=== PATIENT | male | born 1945 | race Caucasian/White ===

== ENCOUNTER 2018-08-03 13:05 | Emergency (ER) | payer MEDICARE ==
[~2018-08-03] VITALS: Ht 190.5 cm; Wt 142.9 kg
--- OUTSIDE RECORDS SUMMARY | ~2018-08-03 | XMS | Clinical Summary ---
Demographics + + + | Address | [address] | | | [place] [address] | + + + | Home Phone | | + + + | Preferred Language | Unknown | + + + | Marital Status | | + + + | Mosque Affiliation | Unknown | + + + | Race | Unknown | + + + | Ethnic Group | Unknown | + + + Author + + + | Author | [facility] [employer] | + + + | Organization | [facility] | + + + | Address | Unknown | + + + | Phone | Unavailable | + + + Support + + + + + | Name | Relationship | Address | Phone | + + + + + | Naomi Burrell | ECON | [address] | | | | | [place] | | | | | [address] | | + + + + + Care Team Providers + +------+ + | Care Commercial Decorator Name | Role | Phone | + +------+ + | Abram Rodriguez MD | PP | | + +------+ + Allergies No Known Allergies Current Medications + + +---------+---------+------+------+-------+ | Prescription | Sig. | Disp. | Refills | Star | End | Statu | | | | | | t | Date | s | | | | | | Date | | | + + +---------+---------+------+------+-------+ | acetaminophen | Take 1,000 mg by | | | | | Activ | | (TYLENOL) 500 MG | mouth. | | | | | e | | tablet | | | | | | | + + +---------+---------+------+------+-------+ | amLODIPine | | | | 10/2 | | Activ | | (NORVASC) 5 MG | | | | 0/20 | | e | | tablet | | | | 18 | | | + + +---------+---------+------+------+-------+ | aspirin 81 MG | Take 81 mg by mouth. | | | | | Activ | | chewable tablet | | | | | | e | + + +---------+---------+------+------+-------+ | carvedilol (COREG) | | | 0 | 09/1 | | Activ | | 25 MG tablet | | | | 0/20 | | e | | | | | | 18 | | | + + +---------+---------+------+------+-------+ | cloNIDine | Take 0.1 mg by mouth | | 1 | 10/2 | | Activ | | (CATAPRES) 0.1 MG | 2 (two) times | | | 3/20 | | e | | tablet | daily. | | | 18 | | | + + +---------+---------+------+------+-------+ | vitamin D2, | Take 50,000 Units by | | | | | Activ | | ergocalciferol, | mouth. | | | | | e | | [address]97 units capsule | | | | | | | + + +---------+---------+------+------+-------+ | furosemide (LASIX) | Take 40 mg by mouth | | 0 | 10/0 | | Activ | | 40 MG tablet | daily. | | | 4/20 | | e | | | | | | 18 | | | + + +---------+---------+------+------+-------+ | gemfibrozil | | | 0 | 08/1 | | Activ | | (LOPID) 600 MG | | | | 9/20 | | e | | tablet | | | | 18 | | | + + +---------+---------+------+------+-------+ | insulin lispro, | Inject 18-20 Units | | | 10/0 | | Activ | | human, (HUMALOG | into the skin. | | | 2/20 | | e | | KWIKPEN) 100 UNIT/ML | | | | 17 | | | | injection | | | | | | | + + +---------+---------+------+------+-------+ | | Take 1 tablet by | | 0 | 10/0 | | Activ | | HYDROcodone-acetamin | mouth every 4 (four) | | | 8/20 | | e | | ophen (NORCO) | hours as needed. | | | 18 | | | | 7.5-325 MG per | for pain | | | | | | | tablet | | | | | | | + + +---------+---------+------+------+-------+ | loratadine | 20 mg. | | | | | Activ | | (CLARITIN) 10 MG | | | | | | e | | tablet | | | | | | | + + +---------+---------+------+------+-------+ | losartan (COZAAR) | Take 50 mg by mouth. | | | | | Activ | | 50 MG tablet | | | | | | e | + + +---------+---------+------+------+-------+ | lovastatin | | | 0 | 10/1 | | Activ | | (MEVACOR) 40 MG | | | | 9/20 | | e | | tablet | | | | 18 | | | + + +---------+---------+------+------+-------+ | omeprazole | Take 20 mg by mouth. | | | | | Activ | | (PRILOSEC) 20 MG | | | | | | e | | capsule | | | | | | | + + +---------+---------+------+------+-------+ | POTASSIUM ACETATE | Take by mouth. | | | | | Activ | | IV | | | | | | e | + + +---------+---------+------+------+-------+ | potassium chloride | Take 10 mEq by mouth | | 0 | 10/0 | | Activ | | (K-TAB) 10 MEQ CR | 2 (two) times | | | 4/20 | | e | | tablet | daily. | | | 18 | | | + + +---------+---------+------+------+-------+ | tamsulosin | take 1 capsule by | | | 08/1 | | Activ | | (FLOMAX) 0.4 MG | mouth once daily | | | 3/20 | | e | | capsule | | | | 18 | | | + + +---------+---------+------+------+-------+ | venlafaxine | 75 mg. | | | 09/0 | | Activ | | (EFFEXOR-XR) 75 MG | | | | 6/20 | | e | | 24 hr capsule | | | | 17 | | | + + +---------+---------+------+------+-------+ | LANTUS 100 UNIT/ML | Inject 40 Units into | 10 mL | 0 | 11/2 | | Activ | | injection | the skin nightly. | | | 8/20 | | e | | | | | | 18 | | | + + +---------+---------+------+------+-------+ | apixaban (ELIQUIS) | Take 1 tablet by | 60 | 2 | 12/0 | | Activ | | 5 MG tablet | mouth 2 (two) times | tablet | | 3/20 | | e | | | daily. | | | 18 | | | + + +---------+---------+------+------+-------+ Active Problems + + + | Problem | Noted Date | + + + | Other acute pulmonary embolism without acute cor pulmonale (HCC) | 03/27/2018 | + + + | Acute pulmonary embolism (HCC) | 03/24/2018 | + + + | Essential hypertension | 03/23/2018 | + + + | Diastolic CHF, acute on chronic (HCC) | 03/23/2018 | + + + | MIGUEL on CPAP | 03/23/2018 | + + + | Type 2 diabetes mellitus with circulatory disorder, with | 03/23/2018 | | long-term current use of insulin ([facility]) | | + + + | CAD S/P percutaneous coronary angioplasty | 03/23/2018 | + + + Resolved Problems + + + + | Problem | Noted | Resolved | | | Date | Date | + + + + | Acute hypoxemic respiratory failure (HCC) | 03/24/20 | | | | 18 | 8 | + + + + | Hypoxia | 03/23/20 | | | | 18 | 8 | + + + + | GISELA (acute kidney injury) (HCC) | 03/23/20 | | | | 18 | 8 | + + + + Social History + +-------+ +--------+------+ | Tobacco Use | Types | Packs/Day | Years | Date | | | | | Used | | + +-------+ +--------+------+ | Never Smoker | | | | | + +-------+ +--------+------+ + +---+---+---+ | Smokeless Tobacco: | | | | | Never Used | | | | + +---+---+---+ + + +---------+ + | Alcohol Use | Drinks/We | oz/Week | Comments | | | ek | | | + + +---------+ + | Yes | 9 | 5.4 | | | | Standard | | | | | drinks or | | | | | | | | | | equivalen | | | | | t | | | + + +---------+ + + + + | Sex Assigned at | Date Recorded | | | | + + + | Not on file | | + + + Last Filed Vital Signs + + + + | Vital Sign | Reading | Time Taken | + + + + | Blood Pressure | 152/73 | 03/27/2018 11:36 AM PST | + + + + | Pulse | 90 | 03/27/2018 11:36 AM PST | + + + + | Temperature | 36.5 C (97.7 F) | 03/27/2018 11:36 AM PST | + + + + | Respiratory Rate | 20 | 03/27/2018 11:36 AM PST | + + + + | Oxygen Saturation | 97% | 03/27/2018 11:36 AM PST | + + + + | Inhaled Oxygen | - | - | | Concentration | | | + + + + | Weight | 136.3 kg (300 lb 7.8 | 03/26/2018 7:40 PM PST | | | oz) | | + + + + | Height | 190.5 cm (6' 3") | 03/23/2018 9:09 PM PST | + + + + | Body Mass Index | 37.56 | 03/26/2018 7:40 PM PST | + + + + Plan of Treatment + + + + + | Health Maintenance | Due Date | Last Done | Comments | + + + + + | Diabetic Eye Exam | | | | | | 4 | | | + + + + + | Diabetic Foot Exam | | | | | | 4 | | | + + + + + | Microalbumin | | | | | Screening | 4 | | | + + + + + | Vaccine: | | | | | Dtap/Tdap/Td (1 - | 3 | | | | Tdap) | | | | + + + + + | Colon Cancer | | | | | Screening | 4 | | | | (Colonoscopy) | | | | + + + + + | Vaccine: Zoster (1 | | | | | of 2) | 4 | | | + + + + + | Statin Therapy | | | | | (optimal intensity) | 8 | | | + + + + + | Hemoglobin A1c | | 03/24/2018 | | | | 9 | | | + + + + + | Vaccine: | Completed | 02/11/2015, 01/27/2010 | | | Pneumococcal 65+ | | | | | Low/Medium Risk | | | | + + + + + | Vaccine: Influenza | Completed | 02/04/2018, 01/16/2017, | | | | | 03/29/2016, Additional history | | | | | exists | | + + + + + Results Not on filefrom Last 3 Months Insurance + +--------+ +------+-------+ + | Payer | Benefi | Subscriber | Type | Phone | Address | | | t Plan | ID | | | | | | / | | | | | | | Group | | | | | + +--------+ +------+-------+ + | [facility] | [employer] | [id number] | | | | | | | | | | | | | HEALTH | | | | | | | CARE - | | | | | | | AARP | | | | | + +--------+ +------+-------+ + | MEDICARE | MEDICA | [id number] | | | [address] | | | RE | | | | [place] [address] | | | IP-OP | | | | | + +--------+ +------+-------+ + + +--------+ +--------+ + + | Guarantor Name | Accoun | Relation to | Date | Phone | Billing Address | | | t Type | Patient | of | | | | | | | | | | + +--------+ +--------+ + + | HENRRY BURRELL | Person | Self [birth year] | Home: | [address] | | | al/Fam | | [phone] | [phone] [place], [place] | | | marci | | | [phone] | [phone] | + +--------+ +--------+ + +
--- OUTSIDE RECORDS SUMMARY | ~2018-08-03 | XMS | Encounter Summary ---
Demographics + + + | Address | [address] | | | [place] [address] | + + + | Home Phone | | + + + | Preferred Language | Unknown | + + + | Marital Status | | + + + | Roman Catholic Affiliation | Unknown | + + + | Race | Unknown | + + + | Ethnic Group | Unknown | + + + Author + + + | Author | [facility] | | | and [place] | + + + | Organization | [facility] | | | and [place] | + + + | Address | Unknown | + + + | Phone | Unavailable | + + + Support + + + + + | Name | Relationship | Address | Phone | + + + + + | Naomi Greenfield | ECON | [address] | | | | | [place], [place] | | | | | [address] | | + + + + + Care Team Providers + +------+ + | Care Animal Care Giver Name | Role | Phone | + +------+ + | Abram Rodriguez MD | PCP | | + +------+ + Reason for Visit + + + | Reason | Comments | + + + | Lab Order | | + + + Encounter Details +--------+ + + + + | Date | Type | Department | Care Team | Description | +--------+ + + + + | 05/22/ | Telephone | [facility] | Carlos Cardoza | Lab Order | | 2018 | | [place] [address] | MD [place] [address] | | | | | [place], | [address] [place] | | | | | [place] [address] | [place] [address] | | | | | [phone] | [phone] | | | | | | | | +--------+ + + + + Social History + + + +--------+ + | Tobacco Use | Types | Packs/Day | Years | Date | | | | | Used | | + + + +--------+ + | Former Smoker | Cigarettes | 1 | 33 | 10/27/1961 - | | | | | | 04/30/1993 | + + + +--------+ + + +------+---+ + | Smokeless Tobacco: | Chew | | Quit: | | Former User | | | 04/30/19 | | | | | 11 | + +------+---+ + + + +---------+ + | Alcohol Use | Drinks/We | oz/Week | Comments | | | ek | | | + + +---------+ + | Yes | 14 | 8.4 | 4 drinks a day | | | Standard | | | | | drinks or | | | | | | | | | | equivalen | | | | | t | | | + + +---------+ + + + + | Sex Assigned at | Date Recorded | | | | + + + | Not on file | | + + + as of this encounter Plan of Treatment +--------+---------+ + + + | Date | Type | Specialty | Care Team | Description | +--------+---------+ + + + | 08/07/ | Office | Pulmonology | Shar Artis, | | | 2018 | Visit | | MD Mg Suarez | | | | | | [address] | | | | | | [place] | | | | | | [id number] | | | | | | | | +--------+---------+ + + + | 11/05/ | Office | Nephrology | Brittany Mederos, | | | 2018 | Visit | | MD Greg Schrader | | | | | | [place] | | | | | | [place] [address] | | | | | | [phone] | | | | | | | | +--------+---------+ + + + as of this encounter Visit Diagnoses Not on filein this encounter"
--- OUTSIDE RECORDS SUMMARY | ~2018-08-03 | XMS | Clinical Summary ---
Demographics + + + | Address | [address] | | | [place] [address] | + + + | Home Phone | | + + + | Preferred Language | Unknown | + + + | Marital Status | | + + + | Religion Affiliation | Unknown | + + + | Race | Unknown | + + + | Ethnic Group | Unknown | + + + Author + + + | Author | [facility] | | | and Javiana | + + + | Organization | [facility] | | | and Javiana | + + + | Address | Unknown | + + + | Phone | Unavailable | + + + Support + + + + + | Name | Relationship | Address | Phone | + + + + + | Naomi Burrell | ECON | [address] | | | | | [place], [place] | | | | | [address] | | + + + + + Care Team Providers + +------+ + | Care Document Review Attorney Name | Role | Phone | + [...] | | + + +---------+---------+------+------+-------+ | insulin glargine | Inject 75 Units | | | | | Activ | | (LANTUS) 100 | under the skin | | | | | e | | units/mL injection | nightly. | | | | | | + + +---------+---------+------+------+-------+ | lovastatin | Take 80 mg by mouth | | | | | Activ | | (MEVACOR) 40 MG | nightly. | | | | | e | | tablet | | | | | | | + + +---------+---------+------+------+-------+ | ergocalciferol | Take 50,000 Units by | | | | | Activ | | (VITAMIN D-2) 50,000 | mouth Once a week. | | | | | e | | units capsule | | | | | | | + + +---------+---------+------+------+-------+ | aspirin 81 mg EC | Take 81 mg by mouth | | | | | Activ | | tablet | Daily. | | | | | e | + + +---------+---------+------+------+-------+ | omeprazole | Take 20 mg by mouth | | | | | Activ | | (PRILOSEC) 20 mg | every morning | | | | | e | | capsule | (before breakfast). | | | | | | + + +---------+---------+------+------+-------+ | losartan (COZAAR) | Take 50 mg by mouth | | | | | Activ | | 50 mg tablet | Daily. | | | | | e | + + +---------+---------+------+------+-------+ | Loratadine 10 MG | Take 10 mg by mouth | | | | | Activ | | CAPS | Daily. | | | | | e | + + +---------+---------+------+------+-------+ | acetaminophen | Take 1,000 mg by | | | | | Activ | | (TYLENOL) 500 mg | mouth 3 times daily. | | | | | e | | tablet | | | | | | | + + +---------+---------+------+------+-------+ | amLODIPine | Take 5 mg by mouth | | | 03/3 | | Activ | | (NORVASC) 5 mg | Daily. | | | 05/19 | | e | | tablet | | | | 17 | | | + + +---------+---------+------+------+-------+ | carvedilol (COREG) | Take 25 mg by mouth | | | / | | Activ | | 25 mg tablet | 2 times daily (with | | | 12/17 | | e | | | breakfast & dinner). | | | 17 | | | + + +---------+---------+------+------+-------+ | venlafaxine | 75 mg Daily. | | | 090 | | Activ | | (EFFEXOR XR) 75 mg | | | | 20 | | e | | 24 hr capsule | | | | 17 | | | + + +---------+---------+------+------+-------+ | albuterol (PROAIR | Inhale 2 puffs into | 1 | 0 | 09/1 | | Activ | | HFA) 90 mcg/puff | the lungs every 4 | Inhaler | | / | | e | | inhalerIndications: | hours as needed for | | | 17 | | | | Dyspnea, unspecified | Shortness of Breath. | | | | | | | type | | | | | | | + + +---------+---------+------+------+-------+ | HUMALOG KWIKPEN | Inject 18-20 Units | | | 10/0 | | Activ | | 100 UNIT/ML | under the skin 3 | | | 2/20 | | e | | injection (pen) | times daily (before | | | 17 | | | | | meals). Plus ss | | | | | | + + +---------+---------+------+------+-------+ | | Take 1 tablet by | | | | | Activ | | HYDROcodone-acetamin | mouth 3 times daily. | | | | | e | | ophen (NORCO) | | | | | | | | 7.5-325 mg per | | | | | | | | tablet | | | | | | | + + +---------+---------+------+------+-------+ | gemfibrozil | Take 600 mg by mouth | | | | | Activ | | (LOPID) 600 mg | 2 times daily | | | | | e | | tablet | (before meals). | | | | | | + + +---------+---------+------+------+-------+ | tamsulosin | take 1 capsule by | 90 | 3 | 08/1 | | Activ | | (FLOMAX) 0.4 mg CAPS | mouth once daily | capsule | | 3/20 | | e | | | | | | 18 | | | + + +---------+---------+------+------+-------+ | furosemide (LASIX) | Take 80 mg by mouth | | | | | Activ | | 80 mg tablet | Daily. | | | | | e | + + +---------+---------+------+------+-------+ | POTASSIUM PO | Take by mouth 2 | | | | | Activ | | | times daily. | | | | | e | + + +---------+---------+------+------+-------+ Active Problems + + + | Problem | Noted Date | + + + | Vitamin D deficiency | 09/19/2017 | + + + | Morbid obesity (HCC) | 01/19/2017 | + + + | Cough | 02/15/2015 | + + + | Hypoxemia | 02/15/2015 | + + + | Bilateral lumbar radiculopathy | 09/16/2014 | + + + | Spinal stenosis of lumbar region | 08/31/2014 | + + + | Facet arthritis of lumbar region | 08/31/2014 | + + + | Chronic low back pain | 06/10/2014 | + + + | DDD (degenerative disc disease), lumbar | 06/10/2014 | + + + | Dyspnea | 04/15/2014 | + + + + + | Overview: Echocardiogram February 2018 overall left | | ventricular systolic function is normal with an EF of 65 %. The | | right ventricle is meegjnia-zx-akiboggq enlarged. The right | | ventricular systolic function is moderately impaired. The right | | ventricular apex has hyperdynamic contractility, but there is | | moderate hypokinesis of the free wall (Martinez's sign, | | suggestive of acute cor pulmonale and a pulmonary embolism). | | There is mild to moderate pulmonary hypertension. The right | | ventricular systolic pressure (pulmonary artery systolic | | pressure), as measured by Doppler, is 49 - 54 mm Hg. 4. No | | significant valvular abnormalities are noted. Kareem López, | | MDChest X-ray February 2018 the cardiomediastinal contours are | | normal in size. Mild calcification of the aortic arch is present. | | There is no pneumothorax or effusion. The lungs are clear | | without focal consolidation. There is severe generalized | | osteopenia. Michel Reyes, Ranjan February 2018 shows sinus | | tachycardia, with an heart rate of 118. | + + + + + | Proteinuria | 04/13/2014 | + + + | MIGUEL (obstructive sleep apnea) | 01/17/2013 | + + + | Edema | 01/01/2013 | + + + | Trauma of chest | 04/30/1971 | + + + + + | Overview: right claviclem rib fracture, pmtx. | + + + +---+ | Hyperlipidemia | | + +---+ | Hypertension | | + +---+ | Coronary artery disease | | + +---+ | Congestive heart failure (HCC) | | + +---+ + + | Overview: VAS bilateral lower extremities scan done at [facility] | | February 2018 shows no evidence of right lower extremity deep | | vein thrombosis. Nonoccluding thrombus in the distal left | | popliteal vein and occluding thrombus within the posterior tibial | | vein of the catheterEchocardiogram done at [facility] February 2018 | | shows overall left ventricular systolic function is normal with | | an EF of 65 %. The right ventricle is nxcnltsp-xf-kqfupzmg | | enlarged. The right ventricular systolic function is | | moderately impaired. The right ventricular apex has | | hyperdynamic contractility, but there is moderate hypokinesis of | | the free wall (Martinez's sign, suggestive of acute cor | | pulmonale and a pulmonary embolism). There is mild to moderate | | pulmonary hypertension. The right ventricular systolic | | pressure (pulmonary artery systolic pressure), as measured by | | Doppler, is 49 - 54 mm Hg. 4. No significant valvular | | abnormalities are noted.Mild | + + + +---+ | DM type 1 (diabetes mellitus, type 1) ([facility]) | | + +---+ + + | Overview: Diagnosed at age 38. | + + + +---+ | Diabetic retinopathy ([facility]) | | + +---+ | Diabetic neuropathy ([facility]) | | + +---+ | Obesity | | + +---+ | Neuropathy | | + +---+ + + | Overview: feet | + + + +---+ | Measles | | + +---+ | Hyperlipemia | | + +---+ | Heart disease | | + +---+ | Hay fever | | + +---+ | Gastric ulcer due to Helicobacter pylori | | + +---+ + + | Overview: s/p tx. | + + + +---+ | Diabetes mellitus (HCC) | | + +---+ | Depression | | + +---+ | Chicken pox | | + +---+ | Arthritis | | + +---+ | Ankle fracture | | + +---+ + + | Overview: ORIF 1972 | + + + +---+ | Acid reflux disease | | + +---+ Encounters +--------+ + + + + | Date | Type | Specialty | Care Team | Description | +--------+ + + + + | 05/22/ | Telephone | | Carlos Cardoza | Lab Order | | 2019 | | | MD Akash | | +--------+ + + + + from Last 3 Months Immunizations + + + + | Name | Dates Previously Given | Next Due | + + + + | INFLUENZA 63 Y OR >, | 01/16/2017, 03/29/2016, 02/11/2015 | | | TRIVALENT HIGH-DOSE | | | + + + + | INFLUENZA PF 16 Y OR | 01/27/2014, 01/29/2012 | | | >,TRIVALENT | | | | RECOMBINANT | | | + + + + | PNEUMOCOCCAL | 02/11/2015 | | | CONJUGATE 13-VALENT | | | | (PCV13) | | | + + + + | PNEUMOCOCCAL | 01/27/2010 | | | POLYSACCHARIDE | | | | 23-VALENT (PPSV23) | | | + + + + Family History + + +------+ + | Medical History | Relation | Name | Comments | + + +------+ + | * | Brother | | healthy | + + +------+ + | Diabetes, IDDM | Father | | | + + +------+ + | Heart attack | Father | | | + + +------+ + | Cancer | Mother | | Unlknown primary | + + +------+ + + +------+ + + | Relation | Name | Status | Comments | + +------+ + + | Brother | | Alive | | + +------+ + + | Father | | | | + +------+ + + | Mother | | | | + +------+ + + Social History + + + [...] 13 | + +------+---+ + + + | Tobacco Cessation: Counseling Given: No | + + + + +---------+ + | Alcohol [...] + + + | Blood Pressure | 138/64 | 02/21/20186 PDT | + + + + | Pulse | 98 | 02/21/20181405 PDT | + + + + | Temperature | 36 C (96.8 F) | 12/14/2014 1120 PDT | + + + + | Respiratory Rate | 20 | 02/21/20181405 PDT | + + + + | Oxygen Saturation | 91% | 10/30/2017 1018 PDT | + + + + | Inhaled Oxygen | - | - | | Concentration | | | + + + + | Weight | 145.6 kg (320 lb | 02/21/20181405 PDT | | | 15.8 oz) | | + + + + | Height | 190.5 cm (6' 3") | 02/21/20181405 PDT | + + + + | Body Mass Index | 40.12 | 02/21/20181405 PDT | + + + + Plan of Treatment +--------+---------+ + + + | Date | Type | Specialty | Care Team | Description | +--------+---------+ + + + | 08/07/ | Office | | Shar Artis, | | | 2018 | Visit | | MD Mg Suarez | | | | | | [place], [address] | | | | | | [place] | | | | | | [address] | | | | | | | | +--------+---------+ + + + | 11/05/ | Office | | Brittany Mederos, | | | 2018 | Visit | | MD Greg Schrader | | | | | | [place] | | | | | | [place] [address] | | | | | | [phone] | | | | | | | | +--------+---------+ + + + + + + + + | Health Maintenance | Due Date | Last Done | Comments | + + + + + | Diabetic Eye Exam | | | | | | 2 | | | + + + + + | Diabetic Foot Exam | | | | | | 2 | | | + + + + + | Vaccine: | | | | | Dtap/Tdap/Td (1 - | 3 | | | | Tdap) | | | | + + + + + | Colorectal Cancer | | | | | Screening | 4 | | | | (Colonoscopy) | | | | + + + + + | Vaccine: Zoster (1 | | | | | of 2) | 4 | | | + + + + + | AAA Screening | | | | | | 9 | | | + + + + + | Adult Annual | | | | | Wellness Visit | 5 | | | + + + + + | Statin Therapy | | | | | (optimal intensity) | 5 | | | + + + + + | Hemoglobin A1c Q3 | | 01/05/2017, 07/21/2016, | | | Months | 7 | 11/27/2013, Additional history | | | | | exists | | + + + + + | Vaccine: Influenza | | 01/16/2017, 03/29/2016, | | | (Season Ended) | 9 | 02/11/2015, Additional history | | | | | exists | | + + + + + | Vaccine: | Completed | 02/11/2015, 01/27/2010 | | | Pneumococcal 65+ | | | | | Low/Medium Risk | | | | + + + + + Results Not on filefrom Last 3 Months Insurance + +--------+ +--------+ +---------+ | Payer | Benefi | Subscriber | Type | Phone | Address | | | t Plan | ID | | | | | | / | | | | | | | Group | | | | | + +--------+ +--------+ +---------+ | MEDICARE | MEDICA | [id number] | Medica | [phone] | | | RE | | re | [phone] | | | | PART A | | | | | | | AND B | | | | | + +--------+ +--------+ +---------+ | AARP | AARP | [id number] | Indemn | [phone] | | | MDCR | | ity | [phone] | | | | SUPPL | | | | | + +--------+ +--------+ +---------+ + +--------+ +--------+ + + | Guarantor Name | Accoun | Relation to | Date | Phone | Billing Address | | | t Type | Patient | of | | | | | | | | | | + +--------+ +--------+ + + | TIM BURRELL | Person | Self | [birth year] | Home: | [address] | | [place] | al/Fam | | 1946 | [phone] | [place] | | | [place] | | | [phone] | [address] | + +--------+ +--------+ + +
--- OUTSIDE RECORDS SUMMARY | ~2018-08-03 | XMS | Encounter Summary ---
Demographics + + + | Address | [address] | | | [place] [address] | + + + | Home Phone | | + + + | Preferred Language | Unknown | + + + | Marital Status | | + + + | Christianity Affiliation | Unknown | + + + | Race | Unknown | + + + | Ethnic Group | Unknown | + + + Author + + + | Author | [facility] | | | and Javiana | + + + | Organization | [facility] | | | and J[place]iana | + + + | Address | Unknown | + + + | Phone | Unavailable | + + + Support + + + + + | Name | Relationship | Address | Phone | + + + + + | Naomi Greenfield | ECON | [address] | | | | | [place], [place] | | | | | [address] | | + + + + + Care Team Providers + +------+ + | Care Feed In Worker Name | Role | Phone | + [...] | Telephone | [facility] | Carlso Cardoza | Lab Order | | 2018 | | [address] [address] | MD Akash [address] | | | | | [place], | [address] [place] | | | | | [place] [address] | [place] [address] | | | | | [phone] | [phone] | | | | | | | [...] [place] | | | | | | [address] | | | | | | | | +--------+---------+ + + + | 11/05/ | Office | Nephrology | Brittany Mederos, | | | 2018 | Visit | | MD Greg Schrader | | | | | | [place] | | | | | | [place] [address] | | | | | | [phone] | | | | | | | | +--------+---------+ + + + as of this encounter Visit Diagnoses Not on filein this encounter"
--- OUTSIDE RECORDS SUMMARY | ~2018-08-03 | XMS | Clinical Summary ---
Demographics + + + | Address | [address] | | | [place] [address] | + + + | Home Phone | | + + + | Preferred Language | Unknown | + + + | Marital Status | | + + + | Yazidism Affiliation | Unknown | + + + | Race | Unknown | + + + | Ethnic Group | Unknown | + + + Author + + + | Author | [facility] | + + + | Organization | [facility] | + + + | Address | Unknown | + + + | Phone | Unavailable | + + + Support + + + + + | Name | Relationship | Address | Phone | + + + + + | Naomi Burrell | ECON | [address] | | | | | [place] | | | | | [address] | | + + + + + Care Team Providers + +------+ + | Care Investment Director Name | Role | Phone | + [...] | | | | e | | 12395 units capsule | | | | | [...] | | long-term current use of insulin ([facility]) | | + + + | [...] | | + +--------+ +------+-------+ + | [facility] | UNITED | [id number] | | | | | | | | | | | | | HEALTH | | | | | | | CARE - | | | | | | | AARP | | | | | + +--------+ +------+-------+ + | MEDICARE | MEDICA | [id number] | | | [address] | | | RE | | | | [place] [address] | | | IP-OP | | | [...] | Self | [birth year] | Home: | [address] | | | al/Fam | | 1946 | [phone] | [place], [place] | | | [place] | | | [phone] | [address] | + +--------+ +--------+ + +
--- OUTSIDE RECORDS SUMMARY | ~2018-08-03 | XMS | Clinical Summary ---
Demographics + + + | Address | [address] | | | [place] [address] | + + + | Home Phone | | + + + | Preferred Language | Unknown | + + + | Marital Status | | + + + | Congregation Affiliation | Unknown | + + + | Race | Unknown | + + + | Ethnic Group | Unknown | + + + Author + + + | Author | [facility] | | | and Javiana | + + + | Organization | [facility] | | | and J[place] | + + + | Address | Unknown | + + + | Phone | Unavailable | + + + Support + + + + + | Name | Relationship | Address | Phone | + + + + + | Naomi Burrell | ECON | [address] | | | | | [place], [place] | | | | | [address] | | + + + + + Care Team Providers + +------+ + | Care Lieutenant General Name | Role | Phone | + [...] %. The | | right ventricle is ouuuqknc-ei-ljtptcld enlarged. The right | | ventricular systolic [...] VAS bilateral lower extremities scan done at [facility] | | February 2018 shows no evidence of right lower extremity deep | | vein thrombosis. Nonoccluding thrombus in the distal left | | popliteal vein and occluding thrombus within the posterior tibial | | vein of the catheterEchocardiogram done at [facility] February 2018 | | shows overall left ventricular systolic function is normal with | | an EF of 65 %. The right ventricle is eacdyjio-ji-guhjvwka | | enlarged. The right ventricular systolic [...] DM type 1 (diabetes mellitus, type 1) ([facility]) | | + +---+ + + | Overview: Diagnosed at age 38. | + + + +---+ | Diabetic retinopathy ([facility]) | | + +---+ | Diabetic neuropathy ([facility]) | | + +---+ | Obesity | [...] | | | | | [place] [address] | | | | | | [phone] | | | | | | | [...] +--------+ +---------+ | MEDICARE | MEDICA | [id number] | Medica | [phone] | | | RE | | re | [phone] | | | | PART A | | | | | | | AND B | | | | | + +--------+ +--------+ +---------+ | AARP | AARP | [id number] | Indemn | [phone] | | [...] | Self | [birth year] | Home: | [address] | | [place] | al/Fam | | 1946 | [phone] | [place] | | | [place] | | | [phone] | [address] | + +--------+ +--------+ + +
[~2018-08-03 13:05] MED LIST: CARVEDILOL25 MG PO; CLARITIN10 M2 PO; EFFEXOR XR75 MG PO; GEMFIBROZIL600 MG PO; HUMALOG100 UNIT/2 SUB-Q; HYDROCHLOROTHIA25 MG PO; HYDROCODON-ACE1 EA11 PO; LANTUS100 UNITS/ SUB-Q; LOSARTAN POTASS50 MG PO; LOVASTATIN40 MG PO; OMEPRAZOLE20 M1 PO
--- OUTSIDE RECORDS SUMMARY | 2018-08-03 13:08 | XMS ---
PreManage Notification: TIM BURRELL Security Road Consultant Events No recent Security Events currently on file CRITERIA MET - [facility] CARE PROVIDERS [facility] Primary Care Current OR PHONE: Unknown HAYLIE WARD Primary Care Current PHONE: Unknown Haylie Ward MD Current PHONE: Unknown Kala has no Care Guidelines for this patient. EMilo VISIT COUNT (12 MO.) 4 [facility] 1 [facility] 1 [facility] TOTAL 6 NOTE: Visits indicate total known visits. ED/UCC VISIT TRACKING (12 MO.) 08/03/2018 13:06 [facility] [place] TYPE: Emergency COMPLAINT: - FLU SYMPTOMS 03[facility]23/2018 18:19 [facility]: Emergency DIAGNOSES: - Pain, unspecified - Shortness of breath - Shortness of Breath 03/23/2018 10:15 [facility] [employer] [place] TYPE: Emergency DIAGNOSES: - SHORTNESS OF BREATH - Heart failure, unspecified - Hypoxemia - Other pulmonary embolism without acute cor pulmonale 03/04/2018 15:27 [facility] [employer] [place] TYPE: Emergency DIAGNOSES: - Diarrhea, unspecified - vomiting poss C-diff 10/27/2017 19:01 [facility] [employer] [place] TYPE: Emergency COMPLAINT: - HIGH BLOOD PRESSURE 10/09/2017 13:29 [facility] COMPLAINT: - HYPERGLYCEMIA/DKA DIAGNOSES: - Type 1 diabetes mellitus with ketoacidosis without coma - Sleep apnea, unspecified INPATIENT VISIT TRACKING (12 MO.) 03/23/2018 [facility] TYPE: General Medicine DIAGNOSES: - Hypoxemia - Atherosclerotic heart disease of [place] coronary artery without angina pectoris - Pain, unspecified - FPC (current) use of insulin - Shortness of breath - Chronic kidney disease, unspecified - Type 2 diabetes mellitus with other circulatory complications - Other pulmonary embolism without acute cor pulmonale - Essential (primary) hypertension - Coronary angioplasty status - Acute on chronic diastolic (congestive) heart failure - Obstructive sleep apnea (adult) (pediatric) - Dependence on other enabling machines and devices 10/09/2017 16:54 [facility] [place] TYPE: Critical Care COMPLAINT: - DKA DIABETIC KETOACIDOSES DIAGNOSES: - Type 1 diabetes mellitus with diabetic chronic kidney disease - Sleep apnea, unspecified - Chronic kidney disease, stage 3 (moderate) - Other specified abnormal findings of blood chemistry - Atherosclerotic heart disease of [place] coronary artery without angina pectoris - Acute kidney failure, unspecified - Presence of coronary angioplasty implant and graft - intermediate card tender (current) use of insulin - Family history of diabetes mellitus - Type 1 diabetes mellitus with ketoacidosis without coma - Hypertensive chronic kidney disease with stage 1 through stage 4 chronic kidney disease, or unspecified chronic kidney disease [id number]
[2018-08-03] MEDS ORDERED: ELIQUIS5 MG PO (13:17)
[2018-08-03] MEDS ORDERED: FUROSEMIDE40 MG PO (13:17)
[2018-08-03] MEDS ORDERED: VENTOLIN HFA18 GM INH (17:14)
[2018-08-03] MEDS ORDERED: PREDNISONE20 MG PO (17:14)
[2018-08-03] MEDS ORDERED: ONDANSETRON ODT8 MG PO (17:16)
--- NOTE | 2018-08-03 22:28 | EKG ---
[facility] [address] [place], [place] [address] Signed Normal sinus rhythm Nonspecific ST and T wave abnormality Abnormal ECG No previous ECGs available Confirmed by BETO CALIXTO MD ([id number]) on 08/03/2018 10:27:51 PM Electronically Signed By: BETO CALIXTO MD 08/03/18 2228 PATIENT NAME: TIM BURRELL Electrocardiogram DATE OF : 41 PHYSICIAN: BETO CALIXTO MD REPORT #: [id number] REPORT IS CONFIDENTIAL AND NOT TO BE RELEASED WITHOUT AUTHORIZATION
== END 2018-08-03 17:34 | disposition home or self-care (01) ==
LOC: ED 13:05
DX: J20.9 Acute bronchitis, unspecified (principal); E11.9 Type 2 diabetes mellitus without complications; E03.9 Hypothyroidism, unspecified; I10 Essential (primary) hypertension; Z87.891 Personal history of nicotine dependence; Z79.899 Other long term (current) drug therapy; Z79.4 Long term (current) use of insulin
CPT/HCPCS: 71045; 80053; 83880; 84484; 85025; 87502; 93005; 93010; 94640; 96374; 96375; 99284-25; J2405; J2930